=== PATIENT | male | born 1970 | race Caucasian/White ===

== ENCOUNTER 2018-08-12 10:36 | Emergency (ER) | payer OTHER ==
[2018-08-12 10:45] VITALS: BP 157/97; PULSE 89; RESP 17; TEMP 98.2; O2SAT 98
[2018-08-12] MEDS ORDERED: Albuterol-Ipratrop 3 mg / 0.5 (3 ml) UD IH STA (12:20)
--- NOTE | 2018-08-12 12:27 | CT ---
Date of service: 08/12/2018 PROCEDURE: CT HEAD WITHOUT CONTRAST. HISTORY: abscess, headache COMPARISON: None available. TECHNIQUE: Axial computed tomography images were obtained through the head/brain without intravenous contrast. Radiation dose: Total exam DLP = 869 mGy-cm. This CT exam was performed using one or more of the following dose reduction techniques: Automated exposure control, adjustment of the mA and/or kV according to patient size, and/or use of iterative reconstruction technique. FINDINGS: HEMORRHAGE: No intracranial hemorrhage. BRAIN: No mass effect or edema. No atrophy or chronic microvascular ischemic changes. VENTRICLES: Unremarkable. No hydrocephalus. CALVARIUM: Unremarkable. PARANASAL SINUSES: Unremarkable as visualized. No significant inflammatory changes. MASTOID AIR CELLS: Unremarkable as visualized. No inflammatory changes. OTHER FINDINGS: None. IMPRESSION: No acute intracranial findings
[2018-08-12 12:50] LABS: BASO # 0.03 K/mm3 (0.0-2.0); BASO % 0.3 % (0.0-3.0); EOS # 0.4 (0.0-0.7); EOS % 3.7 % (1.5-5.0); GRAN # 7.34 (1.4-6.5); GRAN % 67.4 % (50.0-68.0); HEMOGLOBIN 14.8 g/dL (14.0-18.0); LYMPH # 2.2 (1.2-3.4); LYMPH % 20.1 % (22.0-35.0); MEAN CELL VOLUME 77.3 fl (80.0-105.0); MEAN CORPUSCULAR HEMOGLOBIN 26.4 pg (25.0-35.0); MEAN CORPUSCULAR HGB CONC 34.2 g/dl (31.0-37.0); MEAN PLATELET VOLUME 10.1 fl (7.0-11.0); MONO # 0.9 (0.1-0.6); MONO % 8.5 % (1.0-6.0); RBC 5.6 10^6/uL (3.5-6.1); RED CELL DISTRIBUTION WIDTH 14.1 % (11.5-14.5); WHITE BLOOD COUNT 10.9 10^3/ul (4.5-11.0)
--- NOTE | 2018-08-12 13:02 | ED PDOC ---
Arrival/HPI - General Historian: Patient - History of Present Illness Time/Duration: 1 week Symptom Onset: Sudden Symptom Course: Worsening Quality: Pressure, Fullness Severity Level: Moderate <Andrew Story - Last Filed: 08/12/18 13:20> <Heriberto Cantu - Last Filed: 08/12/18 14:05> - General Chief Complaint: Abnormal Skin Integrity Time Seen by Provider: 08/12/18 11:41 - History of Present Illness Narrative History of Present Illness (Text): 08/12/18 12:55 47 year old male, past medical history of asthma, presents to the emergency department with cellulitis around the right temporal region. Patient states he noticed a small bump 1 week ago that progressively increased in size and became tender to touch. Patient admits to headache. He took an old antibiotic pill thinking it would help with the pain, but it did not help. His has been picking at the abscess which has formed a scab. There is no active drainage or bleeding. Denies fever, chills, dizziness, nausea, vomiting, syncope, vision or hearing changes, chest pain, abdominal pain, shortness of breath, or urinary symptoms. PMD: Dr. Espinoza 08/12/18 13:23 (Andrew Story) Past Medical History - Provider Review Nursing Documentation Reviewed: Yes - Cardiac Hx Cardiac Disorders: No - Pulmonary Hx Respiratory Disorders: Yes Hx Asthma: Yes - Neurological Hx Neurological Disorder: No - HEENT Hx HEENT Disorder: No - Renal Hx Renal Disorder: No - Endocrine/Metabolic Hx Endocrine Disorders: No - Hematological/Oncological Hx Blood Disorders: No - Integumentary Hx Dermatological Disorder: No - Musculoskeletal/Rheumatological Hx Musculoskeletal Disorders: No - Gastrointestinal Hx Gastrointestinal Disorders: Yes Other/Comment: DYSPEPSIA - Genitourinary/Gynecological Hx Genitourinary Disorders: No - Psychiatric Hx Psychophysiologic Disorder: No Hx Substance Use: No - Surgical History Hx Appendectomy: Yes - Anesthesia Hx Anesthesia: Yes Hx Anesthesia Reactions: No <Andrew Story - Last Filed: 08/12/18 13:20> Family/Social History - Physician Review Nursing Documentation Reviewed: Yes Family/Social History: No Known Family HX Smoking Status: Heavy Smoker > 10 Cigarettes Daily Hx Alcohol Use: No Hx Substance Use: No <Andrew Story - Last Filed: 08/12/18 13:20> Allergies/Home Meds <Andrew Story - Last Filed: 08/12/18 13:20> <Heriberto Cantu - Last Filed: 08/12/18 14:05> Allergies/Adverse Reactions: Allergies No Known Allergies Allergy (Verified 08/12/18 10:38) Home Medications: Home Meds Medication Instructions Recorded Confirmed Albuterol HFA [Ventolin HFA 90 2 puff IH [id number] 06/18/18 08/12/18 mcg/actuation (8 g)] Review of Systems - Physician Review All systems were reviewed & negative as marked: Yes - Review of Systems Constitutional: absent: Weight Change, Fevers Eyes: absent: Vision Changes ENT: absent: Hearing Changes Respiratory: absent: SOB, Cough Cardiovascular: absent: Chest Pain, Palpitations Gastrointestinal: absent: Abdominal Pain, Nausea, Vomiting Genitourinary Male: absent: Dysuria, Hematuria Musculoskeletal: Neck Pain. absent: Arthralgias, Back Pain Skin: Skin Lesions, Abscess, Cellulitis Neurological: Headache. absent: Dizziness, Gait Changes Endocrine: absent: Diaphoresis <Andrew Story - Last Filed: 08/12/18 13:20> Physical Exam Vital Signs Reviewed: Yes Temperature: Afebrile Blood Pressure: Hypertensive Pulse: Regular Respiratory Rate: Normal Appearance: Positive for: Well-Appearing, Non-Toxic, Comfortable Pain Distress: None Mental Status: Positive for: Alert and Oriented X 3 - Systems Exam Head: Present: Atraumatic, Normocephalic Pupils: Present: PERRL Extroacular Muscles: Present: EOMI Conjunctiva: Present: Normal Respiratory/Chest: Present: Clear to Auscultation, Good Air Exchange. No: Respiratory Distress, Accessory Muscle Use Cardiovascular: Present: Regular Rate and Rhythm, Normal S1, S2. No: Murmurs Abdomen: No: Tenderness, Distention, Peritoneal Signs Upper Extremity: Present: Normal Inspection. No: Cyanosis, Edema Lower Extremity: Present: Normal Inspection. 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 CBC Head CT Tylenol Albuterol Clindamycin 300mg 08/12/18 13:09 IMPRESSION: No acute intracranial findings CBC shows no elevated white count. Patient will receive Clindamycin 300mg TID for 10 days. Patient will complete course of antibiotics. Tylenol for pain. Patient to follow up with PMD within 3-5 days. If symptoms worsen, patient to return to ED. Patient verbalized understanding and agreement of treatment plan. Case reviewed and discussed with attending provider. (Andrew Story) 08/12/18 Patient Seen With Resident: In agreement with resident note. Patient was seen and evaluated with resident, came up with plan and treatment together. Impression: 47 year old male who is complaining of cellulitis in the right temporal region that started a week ago and has been worsening. (Heriberto Cantu) - Lab Interpretations Lab Results: 08/12/18 12:30 Lab Results 08/12/18 12:30: WBC 10.9 D, RBC 5.60, Hgb 14.8, Hct 43.3, MCV 77.3 L, MCH 26.4 , MCHC 34.2, RDW 14.1, Plt Count 290, MPV 10.1, Gran % 67.4, Lymph % (Auto) 20.1 L, [place] % (Auto) 8.5 H, Eos % (Auto) 3.7, Baso % (Auto) 0.3, Gran # 7.34 H , Lymph # (Auto) 2.2, [place] # (Auto) 0.9 H, Eos # (Auto) 0.4, Baso # (Auto) 0.03 , ESR Pending - RAD Interpretation Narrative RAD Interpretations (Text): 08/12/[address] without Contrast: Dictator : Lior Miller MD IMPRESSION: No acute intracranial findings (Heriberto Cantu) Radiology Orders: 08/12/18 11:52 HEAD W/O CONTRAST [CT] Stat - Medication Orders Current Medication Orders: Discontinued Medications Acetaminophen (Tylenol 325mg Tab) 650 mg PO Q4 PRN PRN Reason: Fever >100.4 F Last Admin: 08/12/18 12:22 Dose: 650 mg MAR Pain/Vitals Document 08/12/18 12:22 SUDARSHAN (Rec: 08/12/18 12:22 SUDARSHAN [id number]) Pain Reassessment Is This A Pain ReAssessment? Yes Presence of Pain Presence of Pain Yes Pain Scale Used Pain Scale Used Numeric Location Pain Location Body Site skin scalp Intensity 6 Scale Used Numeric Albuterol/Ipratropium (Duoneb 3 Mg/0.5 Mg (3 Ml) Ud) 3 ml IH STAT STA Stop: 08/12/18 12:21 Last Admin: 08/12/18 12:24 Dose: 3 ml Clindamycin HCl (Cleocin) 300 mg PO STAT STA PRN Reason: Protocol Stop: 08/12/18 13:39 Last Admin: 08/12/18 13:50 Dose: 300 mg <Andrew Story - Last Filed: 08/12/18 13:20> - Scribe Statement The provider has reviewed the documentation as recorded by the Scribe <Heriberto Cantu - Last Filed: 08/12/18 14:05> - Scribe Statement Priyank Bhagat Provider Scribe Attestation: All medical record entries made by the Scribe were at my direction and personally dictated by me. I have reviewed the chart and agree that the record accurately reflects my personal performance of the history, physical exam, medical decision making, and the department course for this patient. I have also personally directed, reviewed, and agree with the discharge instructions and disposition. (Heriberto Cantu) Disposition/Present on Arrival - Present on Arrival Any Indicators Present on Arrival: No History of DVT/PE: No History of Uncontrolled Diabetes: No Urinary Catheter: No History of Decub. Ulcer: No History Surgical Site Infection Following: None - Disposition Have Diagnosis and Disposition been Completed?: Yes Disposition Time: 13:06 Patient Plan: Discharge <Andrew Story - Last Filed: 08/12/18 13:20> <YadirasamsonHeriberto - Last Filed: 08/12/18 14:05> - Disposition Diagnosis: Abscess or cellulitis of scalp Disposition: HOME/ ROUTINE Condition: GOOD Discharge Instructions (ExitCare): Cellulitis (Skin Infection), Adult (DC) Additional Instructions: Please follow up with Dr. Espinoza within the nexy 3-5 days. Please take antibiotics as instructed and complete the course. For pain, please take Tylenol. If symptoms worsen such as fever, worsening headache, or worsening rash, please return to the ED. Prescriptions: Clindamycin [Cleocin] 300 mg PO TID 10 Days #30 cap Referrals: Lala Espinoza MD [Primary Care Provider] - Follow up with primary Forms: [employer] (Swazi)
== END 2018-08-12 13:53 | disposition home or self-care (01) ==
LOC: ED 10:36
DX: L03.811 Cellulitis of head [any part, except face] (principal)

== ENCOUNTER 2018-08-21 17:32 | Emergency (ER) | payer OTHER ==
[2018-08-21 17:37] VITALS: BMI 21.9
[2018-08-21] MEDS ORDERED: Albuterol-Ipratrop 3 mg / 0.5 (3 ml) UD IH STA (17:40)
--- NOTE | 2018-08-21 18:26 | RAD ---
HISTORY: cough COMPARISON: Chest x-ray performed 07/08/16 TECHNIQUE: Chest, one view. FINDINGS: LUNGS: Bilateral central vascular prominence. No focal consolidation. Please note that chest x-ray has limited sensitivity for the detection of pulmonary masses. PLEURA: No significant pleural effusion identified. No definite pneumothorax . CARDIOVASCULAR: The cardiomediastinal silhouette appears within normal limits of size. OSSEOUS STRUCTURES: No acute osseous abnormality identified. VISUALIZED UPPER ABDOMEN: Unremarkable. OTHER FINDINGS: None. IMPRESSION: Bilateral central vascular prominence.
[2018-08-21] MEDS ORDERED: Albuterol 0.083% Inhal Sol (2.5 mg/3 mL) UD IH STA (18:38)
--- NOTE | 2018-08-21 18:48 | ED PDOC ---
Arrival/HPI - General Chief Complaint: Shortness Of Breath Time Seen by Provider: 08/21/18 17:33 Historian: Patient - History of Present Illness Narrative History of Present Illness (Text): 08/21/18 18:40 47 year old male, whose past medical history includes asthma, presents to the emergency department with nonproductive cough, and shortness of breath. Patient informs of wheezing associated with his cough. Patient also informs of URI symptoms for the past few days. Patient states he has a home nebulizer and rescue inhaler, which are not helping. Patient's pulse ox is 99 on room air. Patient denies any smoking or alcohol use. Patient also denies any fever, chills, sputum, or any other complaints. Time/Duration: Prior to Arrival Past Medical History - Provider Review Nursing Documentation Reviewed: Yes - Infectious Disease Hx of Infectious Diseases: None - Cardiac Hx Cardiac Disorders: No - Pulmonary Hx Respiratory Disorders: Yes Hx Asthma: Yes Hx Chronic Obstructive Pulmonary Disease (COPD): Yes - Neurological Hx Neurological Disorder: No - HEENT Hx HEENT Disorder: No - Renal Hx Renal Disorder: No - Endocrine/Metabolic Hx Endocrine Disorders: No - Hematological/Oncological Hx Blood Disorders: No - Integumentary Hx Dermatological Disorder: No - Musculoskeletal/Rheumatological Hx Musculoskeletal Disorders: No - Gastrointestinal Hx Gastrointestinal Disorders: Yes Other/Comment: DYSPEPSIA - Genitourinary/Gynecological Hx Genitourinary Disorders: No - Psychiatric Hx Psychophysiologic Disorder: No Hx Substance Use: No - Surgical History Hx Appendectomy: Yes - Anesthesia Hx Anesthesia: Yes Hx Anesthesia Reactions: No Family/Social History - Physician Review Nursing Documentation Reviewed: Yes Family/Social History: No Known Family HX Smoking Status: Heavy Smoker > 10 Cigarettes Daily Hx Alcohol Use: No Hx Substance Use: No Allergies/Home Meds Allergies/Adverse Reactions: Allergies No Known Allergies Allergy (Verified 08/21/18 17:46) Home Medications: Home Meds Medication Instructions Recorded Confirmed Albuterol HFA [Ventolin HFA 90 2 puff IH [id number] 06/18/18 08/21/18 mcg/actuation (8 g)] Review of Systems - Physician Review All systems were reviewed & negative as marked: Yes - Review of Systems Constitutional: absent: Fevers, Night Sweats Respiratory: SOB, Cough, Wheezing. absent: Sputum Physical Exam Vital Signs Reviewed: Yes Vital Signs Pulse Resp BP Pulse Ox 08/21/18 17:40 93 H 20 147/88 99 Temperature: Afebrile Blood Pressure: Normal Pulse: Tachycardic Respiratory Rate: Normal Appearance: Positive for: Well-Appearing, Non-Toxic, Uncomfortable. No: Comfortable Pain Distress: None Mental Status: Positive for: Alert and Oriented X 3 - Systems Exam Head: Present: Atraumatic, Normocephalic Pupils: Present: PERRL Extroacular Muscles: Present: EOMI Conjunctiva: Present: Normal Ears: Present: Normal Pharnyx: Present: Normal. No: ERYTHEMA, EXUDATE, TONSILS ENLARGED Nose (External): Present: Atraumatic Nose (Internal): Present: Normal Inspection Respiratory/Chest: Present: Wheezes (mild anterior wheezing), Decreased Breath Sounds. No: Respiratory Distress, Accessory Muscle Use, Rales, Retracting, Rhonchi, Tachypneic, Tender to Palpation Cardiovascular: Present: Regular Rate and Rhythm. No: Murmurs, Gallop Upper Extremity: Present: Normal Inspection. No: Cyanosis, Edema Lower Extremity: Present: Normal Inspection. No: Edema Neurological: Present: GCS=15, CN II-XII Intact, Speech Normal, Motor Func Grossly Intact Skin: Present: Warm, Dry, Normal Color. No: Rashes Psychiatric: Present: Alert, Oriented x 3, Normal Insight, Normal Concentration Medical Decision Making ED Course and Treatment: 08/21/18 18:52 Impression: 47 year old male presents with nonproductive cough and shortness of breath. Differential Diagnosis included but are not limited to: Plan: -- Albuterol -- Duoneb -- Prednisone -- Reassess and disposition Prior Visits: Notes and results from previous visits were reviewed. Patient was last seen in the emergency department on Progress Notes: 08/21/18 19:23 arrives and reports that the patient does smoke. - RAD Interpretation Radiology Orders: 08/21/18 17:40 CHEST PORTABLE [RAD] Stat Chest one view is read by the radiologist shows no infiltrate effusion or cardiomegaly. There are bilateral increased perihilar markings. Pest Control Worker: Radiologist - Medication Orders Current Medication Orders: Albuterol Sulfate (Albuterol 0.5% Inhal Karolina (5 Mg/ Ml) 20 Ml) 2.5 mg IH ONCE STA Stop: 08/21/18 18:39 Discontinued Medications Albuterol/Ipratropium (Duoneb 3 Mg/0.5 Mg (3 Ml) Ud) 3 ml IH ONCE STA Stop: 08/21/18 17:41 Last Admin: 08/21/18 17:53 Dose: 3 ml Prednisone (Prednisone Tab) 60 mg PO STAT STA Stop: 08/21/18 17:41 Last Admin: 08/21/18 17:53 Dose: 60 mg - Scribe Statement The provider has reviewed the documentation as recorded by the Jonathan Louis Provider Scribe Attestation: All medical record entries made by the Jonathan were at my direction and personally dictated by me. I have reviewed the chart and agree that the record accurately reflects my personal performance of the history, physical exam, medical decision making, and the department course for this patient. I have also personally directed, reviewed, and agree with the discharge instructions and disposition. Disposition/Present on Arrival - Present on Arrival Any Indicators Present on Arrival: No History of DVT/PE: No History of Uncontrolled Diabetes: No Urinary Catheter: No History of Decub. Ulcer: No History Surgical Site Infection Following: None - Disposition Have Diagnosis and Disposition been Completed?: Yes Diagnosis: Asthmatic bronchitis Disposition: HOME/ ROUTINE Disposition Time: 19:24 Patient Plan: Discharge Condition: IMPROVED Discharge Instructions (ExitCare): Asthma in Adults, Acute Bronchitis, Quitting Smoking Prescriptions: Amoxicillin [Amoxil 250 mg Cap] 250 mg PO TID #21 cap RX: predniSONE [predniSONE Tab] 20 mg PO DAILY #10 tab Montelukast Sodium [Singulair] 10 mg PO HS #30 tablet Benzonatate [Tessalon Perles] 100 mg PO Q8 #30 sgl RX: Albuterol HFA [Ventolin HFA 90 mcg/actuation (8 g)] 2 puff IH [id number] #1 puff Referrals: Lala Espinoza MD [Primary Care Provider] - Follow up with primary Forms: [employer] (Yi), WORK NOTE
[2018-08-21 19:34] VITALS: BP 112/64; PULSE 97; RESP 18; TEMP 98.3; O2SAT 98
== END 2018-08-21 19:37 | disposition home or self-care (01) ==
LOC: ED 17:32
DX: J45.909 Unspecified asthma, uncomplicated (principal); F17.210 Nicotine dependence, cigarettes, uncomplicated

== ENCOUNTER 2018-09-22 13:15 | Emergency (ER) | payer OTHER ==
[2018-09-22 13:15] VITALS: BMI 21.9
[2018-09-22 13:47] VITALS: RESP 18
--- NOTE | 2018-09-22 14:32 | ED PDOC ---
Arrival/HPI - General Chief Complaint: Abnormal Skin Integrity Time Seen by Provider: 09/22/18 13:54 Historian: Patient - History of Present Illness Narrative History of Present Illness (Text): 09/22/18 14:00 47yr old male presents today for wound check of laceration to left thumb. pt states he was seen at [facility] in the satellite emergency room and then transferred to [facility] main emergency room and [place] for which she had a laceration repair of the thumb. Patient states he was sent home on antibiotics and was advised to follow-up with the hand specialist. Patient states he called them today to try and make an appointment because he was concerned about the discoloration to the lateral aspect of the laceration and was unsuccessful so he came to the emergency room for evaluation. He denies fevers or chills. He is complaining of pain at the laceration site. He denies purulent discharge. No other complaints. Past Medical History - Provider Review Nursing Documentation Reviewed: Yes - Travel History Have you recently traveled outside [place] w/in the past 3 mons?: No - Infectious Disease Hx of Infectious Diseases: None - Cardiac Hx Cardiac Disorders: No - Pulmonary Hx Respiratory Disorders: Yes Hx Asthma: Yes Hx Chronic Obstructive Pulmonary Disease (COPD): Yes - Neurological Hx Neurological Disorder: No - HEENT Hx HEENT Disorder: No - Renal Hx Renal Disorder: No - Endocrine/Metabolic Hx Endocrine Disorders: No - Hematological/Oncological Hx Blood Disorders: No - Integumentary Hx Dermatological Disorder: No - Musculoskeletal/Rheumatological Hx Musculoskeletal Disorders: No - Gastrointestinal Hx Gastrointestinal Disorders: Yes Other/Comment: DYSPEPSIA - Genitourinary/Gynecological Hx Genitourinary Disorders: No - Psychiatric Hx Psychophysiologic Disorder: No Hx Substance Use: No - Surgical History Hx Appendectomy: Yes - Anesthesia Hx Anesthesia: Yes Hx Anesthesia Reactions: No Family/Social History - Physician Review Nursing Documentation Reviewed: Yes Family/Social History: Unknown Family HX Smoking Status: Heavy Smoker > 10 Cigarettes Daily Hx Alcohol Use: No Hx Substance Use: No Allergies/Home Meds Allergies/Adverse Reactions: Allergies No Known Allergies Allergy (Verified 08/21/18 17:46) Home Medications: Home Meds Medication Instructions Recorded Confirmed Albuterol HFA [Ventolin HFA 90 2 puff IH [id number] 06/18/18 08/21/18 mcg/actuation (8 g)] Review of Systems - Review of Systems Constitutional: absent: Fatigue, Fevers Cardiovascular: absent: Chest Pain, Palpitations Gastrointestinal: absent: Abdominal Pain Genitourinary Male: absent: Dysuria Musculoskeletal: Arthralgias. absent: Back Pain, Neck Pain Skin: Laceration Neurological: absent: Headache, Dizziness Psychiatric: absent: Anxiety, Depression Physical Exam Vital Signs Reviewed: Yes Vital Signs Temp Pulse Resp BP Pulse Ox 09/22/18 13:43 98.8 F 102 H 18 127/76 99 Temperature: Afebrile Blood Pressure: Normal Pulse: Tachycardic Respiratory Rate: Normal Appearance: Positive for: Well-Appearing, Non-Toxic, Comfortable Pain Distress: None Mental Status: Positive for: Alert and Oriented X 3 - Systems Exam Head: Present: Atraumatic Mouth: Present: Moist Mucous Membranes Neck: Present: Normal Range of Motion Respiratory/Chest: Present: Clear to Auscultation, Good Air Exchange. No: Respiratory Distress, Accessory Muscle Use Cardiovascular: Present: Regular Rate and Rhythm, Normal S1, S2. No: Murmurs Upper Extremity: Present: Normal ROM, NORMAL PULSES, Tenderness, Swelling, Neurovascularly Intact, Capillary Refill < 2s, Other (left thumb; there is a laceration with suture in place with necrotic tissue noted to the lateral aspect of distal tip of the thumb at the laceration site. ). No: Erythema Neurological: Present: GCS=15, Speech Normal Skin: Present: Warm, Dry, Normal Color Psychiatric: Present: Alert, Oriented x 3 Medical Decision Making ED Course and Treatment: 09/22/18 15:15 pt is non toxic well appearing; no distress. stable vitals. pt with laceration to the left thumb with sutures in place. with necrotic tissue/skin noted along the lateral aspect of the laceration site. call placed to [facility]; pt had laceration performed by orthopedic PA who was working under hand specialist dr. Garcia. I called dr. Garcia's office; awaiting return phone call. 09/22/18 16:56 Case was discussed with Dr. Garcia in depth. he has advised transfer to [facility] ER for further evaluation of skin necrosis. dr. osullivan discussed the case with dr. Santiago at [facility] ER ; accepts transfer. consent for transfer obtained. impression; skin necrosis, finger laceration transfer to [facility] er Accepting physician dr. dr. Pamela Garcia Disposition/Present on Arrival - Present on Arrival Any Indicators Present on Arrival: No History of DVT/PE: No History of Uncontrolled Diabetes: No Urinary Catheter: No History of Decub. Ulcer: No History Surgical Site Infection Following: None - Disposition Have Diagnosis and Disposition been Completed?: Yes Diagnosis: Skin necrosis, Finger laceration Disposition: Transfer [facility] Disposition Time: 16:50 Patient Plan: Transfer To ([facility]; accepting physician dr. Garcia and Dr. Santiago) Patient Problems: Current Active Problems Problem Status Onset Finger laceration Acute Skin necrosis Acute Condition: FAIR Referrals: Lala Espinoza MD [Primary Care Provider] - Follow up with primary Forms: [employer] (Pashto)
[2018-09-22 17:45] VITALS: BP 115/61; PULSE 81; TEMP 98.7; O2SAT 100
[2018-09-23] MEDS ORDERED: Racepinephrine 2.25% Inhal Soln 0.5 ML UD ONE (01:06)
== END 2018-09-22 17:54 | disposition short-term general hospital (02) ==
LOC: ED 13:15
DX: S61.012D Laceration without foreign body of left thumb without damage to nail, subsequent encounter (principal); X58.XXXD Exposure to other specified factors, subsequent encounter; L76.82 Other postprocedural complications of skin and subcutaneous tissue; I96 Gangrene, not elsewhere classified; Y84.8 Other medical procedures as the cause of abnormal reaction of the patient, or of later complication, without mention of misadventure at the time of the procedure